=== PATIENT | female | born 1980 | race African-American/Black ===

== ENCOUNTER 2020-09-21 04:46 | Day surgery (SDC) | payer OTHER ==
[2020-09-20 10:56] VITALS: BMI 24.8
[2020-09-21] MEDS ORDERED: PROPOFOL 20 ML ONE ×3 (07:47→08:24)
[2020-09-21] MEDS ORDERED: IBUPROFEN 800 MG/8 ML IJ IVPB PRN (08:37)
[2020-09-21] MEDS ORDERED: KETOROLAC TROMETHAMINE 30 MG/1 ML VIAL IVPUSH PRN (08:37)
[2020-09-21] MEDS ORDERED: IBUPROFEN 600 MG TABLET (FP) PO PRN (08:37)
[2020-09-21] MEDS ORDERED: ONDANSETRON 4 MG/2 ML VIAL IVPUSH PRN ×2 (08:37)
[2020-09-21] MEDS ORDERED: LACTATED RINGERS SOLUTION 1,000 ML IV SCH (08:45)
[2020-09-21] MEDS ORDERED: ELECTROLYTE-148 SOLN 1,000 ML IV SCH (08:45)
[2020-09-21] MEDS ORDERED: KETOROLAC TROMETHAMINE 30 MG/1 ML VIAL ONE (09:33)
[2020-09-21 11:13] VITALS: TEMP 98.4
[2020-09-21 12:43] VITALS: BP 110/60; PULSE 60
== END 2020-09-21 12:30 | disposition home or self-care (01) ==
LOC: JASU-SURG 04:46
PROVIDERS: ATTEND Obstetrics & Gynecology
PROC: 0UJD8ZZ Inspection of Uterus and Cervix, Via Natural or Artificial Opening Endoscopic (ICD-10-PCS; 2020-09-21)
PROC: 0UB97ZX Excision of Uterus, Via Natural or Artificial Opening, Diagnostic (ICD-10-PCS; principal; 2020-09-21 08:00)
PROC: 0UDB7ZX Extraction of Endometrium, Via Natural or Artificial Opening, Diagnostic (ICD-10-PCS; 2020-09-21 08:00)
DX: N84.0 Polyp of corpus uteri (principal); N81.4 Uterovaginal prolapse, unspecified
CPT/HCPCS: 82962; 84703; 88305-TC; 94760

== ENCOUNTER 2022-04-03 08:53 | Emergency (ER) | payer SELFPAY ==
[2022-04-03 08:56] VITALS: BP 115/67; PULSE 94; TEMP 98.1; BMI 24.8
== END 2022-04-03 10:00 | disposition home or self-care (01) ==
LOC: JER 08:53
DX: U07.1 COVID-19 (principal); R05.1 Acute cough
CPT/HCPCS: 99281-25